=== PATIENT | female | born 1965 | race Caucasian/White ===

== ENCOUNTER → 2021-10-14 14:36 | Outpatient (BNVA) | payer MEDICARE, MEDICAID, SELFPAY | PROVIDERS: PCP Internal Medicine; Visit Provider Internal Medicine | DX: J84.112 Idiopathic pulmonary fibrosis (principal); J96.91 Respiratory failure, unspecified with hypoxia; G47.33 Obstructive sleep apnea (adult) (pediatric); E66.9 Obesity, unspecified; Z99.89 Dependence on other enabling machines and devices | CPT/HCPCS: 99202 ==

== ENCOUNTER 2021-10-19 13:22 | Outpatient (REF) | payer MEDICARE, MEDICAID, SELFPAY ==
--- NOTE | ~2021-10-19 | CT_ITS ---
EXAMINATION: CT CHEST WITHOUT CONTRAST CLINICAL INFORMATION: The hepatic pulmonary fibrosis COMPARISON: Chest CTA September 2017 TECHNIQUE: Multidetector volumetric CT imaging of the chest was done. Axial MIP volume rendering provided. Sagittal and coronal reformatted images were obtained. This CT examination was performed using dose optimization techniques as appropriate, variously including the following: *Automated exposure control *Adjustment of mA and/or kV according to patient size (this includes techniques or standardized protocols for targeted exams where dose is matched to indication/reason for exam; i.e. extremities or head) *Use of iterative reconstruction technique DLP: 180 mGy-cm FINDINGS: LUNGS: The lung volumes are low. There is evidence of interstitial lung disease with increased peripheral reticular markings, increased parenchymal attenuation and honeycombing. This is seen diffusely throughout the lungs. This is slightly increased from 2018 exam. There is a 5 mm right upper lobe nodule axial image 148 series 5. This is new from previous exam. No other nodule is seen. MEDIASTINUM: There are prominent mediastinal lymph nodes that are stable. Evaluation for hilar adenopathy is limited without contrast however there is probable bilateral hilar lymphadenopathy that is not appreciably changed as well. The mediastinum is otherwise unremarkable. PLEURA: There is no pleural effusion. No pleural mass or thickening. AXILLA: No lymphadenopathy. UPPER ABDOMEN: Unremarkable. OSSEOUS STRUCTURES: There are degenerative changes of the spine. CT/CT chest wo con IMPRESSION: Peripheral interstitial lung disease slightly increased from 2018 exam. Question new 5 mm right upper lobe nodule. Chest CT follow-up in 6-12 months recommended. Mediastinal and probable bilateral hilar lymphadenopathy is not appreciably changed. Fleischner guidelines were followed.
== END 2021-10-19 13:23 | disposition home or self-care (01) ==
LOC: HO.CT 13:22
PROVIDERS: Visit Provider Internal Medicine
DX: J96.91 Respiratory failure, unspecified with hypoxia (principal); J84.112 Idiopathic pulmonary fibrosis
CPT/HCPCS: 71250

== ENCOUNTER → 2021-11-09 15:31 | Outpatient (BNVA) | payer MEDICARE, MEDICAID, SELFPAY | PROVIDERS: PCP Internal Medicine; Visit Provider Internal Medicine | DX: J84.112 Idiopathic pulmonary fibrosis (principal); G47.33 Obstructive sleep apnea (adult) (pediatric); J96.91 Respiratory failure, unspecified with hypoxia; E66.9 Obesity, unspecified; Z99.89 Dependence on other enabling machines and devices | CPT/HCPCS: 99212 ==

== ENCOUNTER → 2022-01-07 15:35 | Outpatient (BNVA) | payer MEDICARE, MEDICAID, SELFPAY | PROVIDERS: PCP Internal Medicine; Visit Provider Internal Medicine | DX: J84.112 Idiopathic pulmonary fibrosis (principal); J96.91 Respiratory failure, unspecified with hypoxia; G47.33 Obstructive sleep apnea (adult) (pediatric); E66.9 Obesity, unspecified; F41.9 Anxiety disorder, unspecified; Z99.89 Dependence on other enabling machines and devices; Z68.38 Body mass index [BMI] 38.0-38.9, adult | CPT/HCPCS: 99212 ==

== ENCOUNTER 2023-12-17 20:05 | Emergency (ER) | payer OTHER, SELFPAY ==
--- NOTE | ~2023-12-17 | XR_ITS ---
EXAMINATION: XR KNEE, LEFT CLINICAL INFORMATION: Pain COMPARISON: Left knee radiograph 07/03/2017 TECHNIQUE: AP, lateral, and both oblique views of the left knee. FINDINGS: No acute fracture. Moderate medial compartment arthrosis with joint space narrowing, subchondral sclerosis and marginal osteophytes, progressed from 2017. Mild lateral and patellofemoral compartment arthrosis with osteophytosis. Alignment is anatomic. No significant effusion or soft tissue swelling. XR/XR knee LT 4V IMPRESSION: 1. No acute fracture or dislocation. 2. Moderate medial compartment arthrosis, progressed from 2017.
--- NOTE | 2023-12-17 20:09 | ED_ITS ---
HPI - General Adult General Chief complaint: Extremity Problem Stated complaint: LT knee pain Time Seen by Provider: 12/17/23 21:37 Source: patient Mode of arrival: ambulatory Limitations: no limitations History of Present Illness HPI narrative: Patient's history of pulmonary fibrosis on prednisone status post right knee replacement comes here for pain in the left knee with swelling and redness of the skin last few hours does not remember any trauma no fever no chills no open wound in the left no history of IVDA patient ambulatory as such able to move her knee Related Data Home Medications ?Medication ?Instructions ?Recorded ?Confirmed albuterol sulfate 90 mcg/actuation 2 puff inhalation Q6H PRN 10/14/21 11/09/21 aerosol inhaler baclofen 10 mg tablet 10 mg PO TID 10/14/21 11/09/21 fluticasone fur. 200 mcg-umeclid 1 inh inhalation DAILY 10/14/21 11/09/21 62.5 mcg-vilant 25 mcg inhalat.powder (Trelegy Ellipta) fluticasone propionate 50 1 spray intranasal DAILY 10/14/21 11/09/21 mcg/actuation nasal spray,suspension (Flonase Allergy Relief) ibuprofen 800 mg tablet 800 mg PO TID 10/14/21 11/09/21 ipratropium 0.5 mg-albuterol 3 mg 3 ml inhalation QID PRN 10/14/21 11/09/21 (2.5 mg base)/3 mL nebulization soln sertraline 50 mg tablet 50 mg PO DAILY 10/14/21 11/09/21 trazodone 50 mg tablet 50 mg PO BEDTIME PRN 10/14/21 11/09/21 omeprazole 20 mg capsule,delayed 20 mg PO DAILY 11/09/21 11/09/21 release prednisone 5 mg tablet 5 mg PO DAILY 11/09/21 11/09/21 Previous Rx's ?Medication ?Instructions ?Recorded lorazepam 0.5 mg tablet 0.5 mg PO TID PRN anxiety 15 days 01/07/22 #30 tabs lorazepam 0.5 mg tablet 0.5 mg PO TID PRN anxiety 30 days 01/11/22 #30 tabs lorazepam 0.5 mg tablet 0.5 mg PO TID PRN anxiety 30 days 01/11/22 #30 tabs lorazepam 0.5 mg tablet 0.5 mg PO TID PRN anxiety 10 days 02/18/22 #30 tabs cephalexin 500 mg capsule 500 mg PO QID 10 days #40 caps 12/17/23 doxycycline hyclate 100 mg tablet 100 mg PO BID #20 tabs 12/17/23 Allergies Allergy/AdvReac Type Severity Reaction Status Date / Time Penicillins [PENICILLINS] Allergy Unknown RASH Verified 12/17/23 20:11 Review of Systems 2 Review of Systems: Yes all other systems are reviewed and are negative [facility] Past Medical History Medical History Acute anxiety Respiratory failure with hypoxia Idiopathic pulmonary fibrosis APRIL on CPAP Obesity (BMI 30-39.9) Social History Social History Patient Tobacco Use Status: Never used Tobacco Advance Directives: Yes Advance Directives Information Provided: No Advance Directives on File: No Physical Exam ED Vital Signs: Vital Signs - 24 hr 12/17/23 20:10 12/17/23 22:34 Temperature 98.6 F 98.6 F Pulse Rate 100 100 Respiratory Rate 16 16 Blood Pressure 124/80 124/80 Pulse Oximetry 94 94 Oxygen Delivery Method Room Air Room Air BMI result Body Mass Index 22.9 Appearance: Alert. Oriented X3. No acute distress. Eyes: PERRLA, No Nystagmus ENT: Pharynx normal. Oral Mucosa moist Neck: Normal inspection. Neck supple. CVS: Normal heart rate and rhythm. Pulses normal. Respiratory: No respiratory distress. Equal air entry bilateral, Abdomen: Soft and nontender. Bowel sounds are present, no mass palpable, Skin: Skin warm and dry. Normal skin color. Normal skin turgor. Extremities: No lower extremity edema. No calf tenderness left knee diffuse swelling with joint effusion surrounding cellulitis changes good active and passive movements Maury sign anterior drawer sign negative Neuro: Oriented X 3. Course Course Course Narrative: RME performed by Sissy Eugene PA-C. Patient is a 58 year old assigned female at presenting to the emergency department with a warm and red left knee. Patient states that her PCP sent her here for DVT rule out. Detailed physical exam and review of systems are deferred to the test automation architect. Labs and imaging ordered. Patient placed back in the waiting room pending room availability and results. Medications Administered Discontinued Medications Generic Name Dose Route Start Last Admin Trade Name Oliver PRN Reason Stop Dose Admin Lidocaine HCl 5 ml 12/17/23 21:45 12/17/23 22:09 Lidocaine Hcl 2 % Mpf 5 Ml Vial INFILTRATI 12/17/23 21:46 5 ml ONCE ONE Administration Procedures Joint Aspiration/Injection Joint Asp./Inject. 1: Time Out Performed: Yes Side of body: left Joint Aspirated: knee Ultrasound Guidance: No Skin Prep: Povidone-Iodine1% Local Anesthetic: lidocaine 2% Amount of anesthesia used (mL): 6 Needle Size Used: 20G Total fluid obtained (mL): 0 Patient Tolerated Procedure: well and no complications Complications: none Medical Decision Making Medical Decision Making [facility] Narrative: Patient with left knee arthritic changes good range of movement clinically not septic arthritis does have cellulitis of the skin etiology not very clear knee aspiration tried x2 dry tap. Po wrap was applied patient will prescribe doxycycline and cephalexin patient is on prednisone elevated white counts likely from use of prednisone Differential Diagnosis Differential Diagnoses: The differential diagnosis associated with the presentation includes Cellulitis/arthritis/septic arthritis Lab Data [facility] Lab Attestation statement: I reviewed the patient's lab results. 12/17/23 20:18 12/17/23 20:18 Labs: Lab Results 12/17/23 Range/Units 20:18 WBC 13.0 H (4.8-10.8) X10*3/uL RBC 4.10 L (4.20-5.50) X10*6/uL Hgb 11.7 L (12.0-16.0) g/dl Hct 35.9 L (37.0-47.0) % MCV 87.6 (80.0-98.0) fL MCH 28.5 (27.0-33.0) pg MCHC 32.6 (31.0-35.0) g/dl RDW 14.6 (11.0-16.0) % Plt Count 302 (160-400) X10*3/uL MPV 9.1 L (9.4-12.3) fL Immature Gran % (Auto) Cancelled Neut % (Auto) Cancelled Lymph % (Auto) Cancelled [place] % (Auto) Cancelled Eos % (Auto) Cancelled Baso % (Auto) Cancelled Lymph # (Auto) Cancelled [place] # (Auto) Cancelled Eos # (Auto) Cancelled Baso # (Auto) Cancelled Abs Immat Gran (auto) Cancelled Absolute Neuts (auto) Cancelled Absolute Nucleated RBC 0.000 (0.0-0.012) X10*3/uL Nucleated RBC % (auto) 0.0 (0.0-0.2) /100WBC Neutrophils % (Manual) 44 L (45-73) % Lymphocytes % (Manual) 48 H (20-40) % Monocytes % (Manual) 7 (2-11) % Eosinophils % (Manual) 1 (0-4) % Abs Neuts (Manual) 5.7 (2.0-8.3) X10*3/uL Lymphocytes # (Manual) 6.2 H (1.2-4.9) X10*3/uL Monocytes # (Manual) 0.9 (0.1-1.2) X10*3/uL Eosinophils # (Manual) 0.1 (0.0-0.4) X10*3/uL Platelet Estimate NORMAL (NORMAL) Plt Morphology Comment NORMAL RBC Morphology NORMAL ESR 26 H (0-20) MM/HR D-Dimer High Sensitivty < 150 NG/ML Sodium 139 (135-145) mmol/L Potassium 3.2 L (3.3-5.1) mmol/L Chloride 104 (96-108) mmol/L Carbon Dioxide 28 (22-29) mmol/L Anion Gap 10 L (12-20) BUN 13 (9-16) mg/dL Creatinine 0.69 (0.5-1.4) mg/dL Estim Creat Clear Calc 72.0 Estimated GFR > 60 Random Glucose 128 H (60-115) mg/dL Calcium 8.8 (8.4-10.2) mg/dL Magnesium 1.8 (1.6-2.6) mg/dL Total Bilirubin 0.3 (0.0-1.0) mg/dL AST 17 (5-31) U/L ALT 14 (0-31) U/L Alkaline Phosphatase 89 (39-117) U/L C-Reactive Protein 1.78 H (< or = 0.50) mg/dL Total Protein 7.8 (6.5-8.0) g/dL Albumin 3.7 (3.5-5.0) g/dL Independent Interpretation I performed an independent interpretation of an: Plain X-Ray Radiology Impression Discussion of test interpretation with radiology: I have reviewed the radiologist's reading. Radiologist Impression: [address] [address] XRay Report Signed Patient: Debbie Veronica MR#: [id number] : 1965 Acct:[id number] Age/Sex: 58 / F ADM Date: 12/17/23 Loc: HO.ED Attending Dr: Ordering Physician: Sissy Eugene Date of Service: 12/17/23 Procedure(s): XR knee LT 4V Accession Number(s): [id number] cc: Sissy Eugene; Physician,Unknown ~ EXAMINATION: XR KNEE, LEFT CLINICAL INFORMATION: Pain COMPARISON: Left knee radiograph 07/03/2017 TECHNIQUE: AP, lateral, and both oblique views of the left knee. FINDINGS: No acute fracture. Moderate medial compartment arthrosis with joint space narrowing, subchondral sclerosis and marginal osteophytes, progressed from 2017. Mild lateral and patellofemoral compartment arthrosis with osteophytosis. Alignment is anatomic. No significant effusion or soft tissue swelling. XR/XR knee LT 4V IMPRESSION: 1. No acute fracture or dislocation. 2. Moderate medial compartment arthrosis, progressed from 2017. Discharge Plan Discharge Clinical Impression: Cellulitis of knee, left, Arthralgia of knee, left Patient Disposition: Home, Self-Care Instructions: Cellulitis (ED), Knee Pain (ED) Additional Instructions: You have arthritis of the left knee and cellulitis No significant fluid noticed in the left knee Take antibiotic as prescribed Continue pain medications Report to the ER if worsening of the pain/high fever Prescriptions: New cephalexin 500 mg capsule 500 mg PO QID 10 Days Qty: 40 0RF doxycycline hyclate 100 mg tablet 100 mg PO BID Qty: 20 0RF No Action lorazepam 0.5 mg tablet 0.5 mg PO TID PRN (Reason: anxiety) 30 Days Qty: 30 2RF lorazepam 0.5 mg tablet 0.5 mg PO TID PRN (Reason: anxiety) 30 Days Qty: 30 0RF lorazepam 0.5 mg tablet 0.5 mg PO TID PRN (Reason: anxiety) 10 Days Qty: 30 0RF omeprazole 20 mg capsule,delayed release(DR/EC) 20 mg PO DAILY prednisone 5 mg tablet 5 mg PO DAILY Trelegy Ellipta 200-62.5-25 mcg blister with device 1 inh inhalation DAILY baclofen 10 mg tablet 10 mg PO TID trazodone 50 mg tablet 50 mg PO BEDTIME PRN ibuprofen 800 mg tablet 800 mg PO TID sertraline 50 mg tablet 50 mg PO DAILY albuterol sulfate 90 mcg/actuation HFA aerosol inhaler 2 puff inhalation Q6H PRN ipratropium-albuterol 0.5 mg-3 mg(2.5 mg base)/3 mL solution for nebulization 3 ml inhalation QID PRN fluticasone propionate [Flonase Allergy Relief] 50 mcg/actuation spray,suspension 1 spray intranasal DAILY Rx Instructions: administer into each nostril lorazepam 0.5 mg tablet 0.5 mg PO TID PRN (Reason: anxiety) 15 Days Qty: 30 2RF Interventions: ED Discharge Assessment Last Done: 12/17/23 22:34 Discharge Date/Time: 12/17/23 22:36 Print Language: Upper Sorbian
[2023-12-17 20:10] VITALS: BP 124/80; PULSE 100; RESP 16; TEMP 37; O2SAT 94; BMI 22.9
[2023-12-17 20:24] LABS: Hematocrit 35.9 % (37.0-47.0); Hemoglobin 11.7 g/dl (12.0-16.0); Mean Corpuscular HGB Conc 32.6 g/dl (31.0-35.0); Mean Corpuscular Hemoglobin 28.5 pg (27.0-33.0); Mean Corpuscular Volume 87.6 fL (80.0-98.0); Mean Platelet Volume 9.1 fL (9.4-12.3); Platelet Count 302 X10*3/uL (160-400); Red Cell Distribution Width 14.6 % (11.0-16.0)
[2023-12-17 20:32] LABS: D Dimer High Sensitivity < 150 NG/ML
[2023-12-17 20:43] LABS: Alanine Aminotransferase 14 U/L (0-31); Albumin Level 3.7 g/dL (3.5-5.0); Alkaline Phosphatase 89 U/L (39-117); Anion Gap 10 (12-20); Aspartate Amino Transferase 17 U/L (5-31); Bilirubin Total 0.3 mg/dL (0.0-1.0); Blood Urea Nitrogen 13 mg/dL (9-16); C Reactive Protein 1.78 mg/dL (< or = 0.50); Calcium 8.8 mg/dL (8.4-10.2); Carbon Dioxide 28 mmol/L (22-29); Chloride 104 mmol/L (96-108); Estimated Glomerular Filt Rate > 60; Glucose Random 128 mg/dL (60-115); Magnesium 1.8 mg/dL (1.6-2.6); Potassium 3.2 mmol/L (3.3-5.1); Sodium 139 mmol/L (135-145); Total Protein 7.8 g/dL (6.5-8.0)
[2023-12-17 20:44] LABS: Eosinophils Absolute Manual 0.1 X10*3/uL (0.0-0.4); Eosinophils Percent Manual 1 % (0-4); Lymphocytes Absolute Manual 6.2 X10*3/uL (1.2-4.9); Lymphocytes Percent Manual 48 % (20-40); Monocytes Absolute Manual 0.9 X10*3/uL (0.1-1.2); Monocytes Percent Manual 7 % (2-11); Neutrophils Percent Manual 44 % (45-73); Platelet Estimate NORMAL (NORMAL); Platelet Morphology Comment NORMAL; RBC Morphology NORMAL
[2023-12-17 20:45] LABS: Neutrophils Absolute Manual 5.7 X10*3/uL (2.0-8.3)
[2023-12-17 21:03] LABS: Erythrocyte Sedimentation Rate 26 MM/HR (0-20)
[2023-12-17] MEDS: Lidocaine HCl 2 % MPF 5 ML VIAL INFILTRATI (22:09)
[2023-12-17 22:34] VITALS: BP 124/80; PULSE 100; RESP 16; TEMP 37; O2SAT 94
== END 2023-12-17 22:36 | disposition home or self-care (01) ==
PROVIDERS: Physician Assistant Medical; Emergency Provider Internal Medicine
DX: L03.116 Cellulitis of left lower limb (principal); M25.562 Pain in left knee; M25.462 Effusion, left knee
CPT/HCPCS: 20610; 36415; 73564; 80053; 83735; 85007; 85027; 85379; 85652; 86140; 99282; 99284

== ENCOUNTER 2024-09-13 15:15 | Outpatient (AMB) | payer OTHER, SELFPAY ==
--- NOTE | 2024-09-13 15:14 | MHC.OFFWIV ---
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 Patient Tobacco Use Status: Never used Tobacco Allergies Penicillins [PENICILLINS] Allergy (Unknown, Verified 09/13/24 15:22) RASH HPI HPI Comments History of Present Illness Details History of Present Illness - The patient is a 59-year-old female presenting with a painful, bony growth on the right foot. - she is currently on hospice for pulmonary fibrosis. - The patient noticed the growth two days ago when putting on a slipper, resulting in significant discomfort. - The growth is hard, consistent with a bony structure, and causes pain, limiting her ability to wear footwear comfortably. - There have been no prior treatments or diagnostic evaluations for this condition. - The patient has not identified any specific aggravating or alleviating factors for the growth. Physical Exam General: Cooperative, healthy appearing, comfortable, no acute distress and well developed Orientation: Patient oriented x3 Limitations: No limitations Head: Normal to inspection Ears: Hearing grossly normal bilaterally Nose: Normal external nose present Face and sinus: normal facial exam Eyes: Appearance normal, both eyes and all related structures Neck: Normal visual inspection and Yes full ROM Respiratory: Normal respiratory effort and able to speak in complete sentences. Skin: No rashes or lesions noted Neuro: Patient oriented x3 Extremities: as below. [facility] Medical History Acute anxiety Respiratory failure with hypoxia Idiopathic pulmonary fibrosis APRIL on CPAP Obesity (BMI 30-39.9) Social History Patient Tobacco Use Status: Never used Tobacco Review of Systems Const All systems reviewed & are unremarkable except as noted in HPI and below Physical Exam Vital Signs: Last Vital Signs Pulse 101 H 09/13/24 15:21 BP 122/80 09/13/24 15:21 Pulse Ox 97 09/13/24 15:21 Oxygen Delivery Method Room Air 09/13/24 15:21 Extrem Left lower extremity: foot Details: normal capillary refill, abnormal to inspection Details: a deformity Location: of the 5th digit (base has raised, hard, nonmobile 1cm lump, no signs of infection noted), tenderness Location: of the base of the 5th metatarsal, toes with normal ROM, no edema, vascular exam Details: normal capillary refill, tendon exam Details: active flexion normal and active extension normal (with pain) and motor-sensory exam Details: light-touch normal; no unusual warmth, no abrasions, no lacerations and no ecchymosis Assessment & Plan Assessment & Plan (1) Acute foot pain: Code(s): M79.673 - Pain in unspecified foot Qualifiers: Laterality: right Qualified Code(s): M79.671 - Pain in right foot Plan: The primary objective is to evaluate the hard, bony growth at the base of the 5th metatarsal on the right foot through radiographic imaging to establish its cause. This will allow for appropriate diagnosis and management, focused on reducing discomfort and restoring the patient's ability to wear shoes. Additional supportive measures were declined, such as orthopedic boot or shoe or crutches. Further interventions will be guided by imaging findings and the patient?s response to initial management strategies. Patient was informed and verbally consented to the use of an ambient scribe for clinic note documentation during this visit. Orders: Orders XR foot RT min 3V Today M79.673 - Pain in unspecified foot Coding Level of Care Code New Pt Level 4 (36848) Diagnoses Acute pain of right foot M79.671 Laterality: right
[2024-09-13 15:21] VITALS: BP 122/80; PULSE 101; O2SAT 97
== END 2024-09-13 15:47 | disposition home or self-care (01) ==
PROVIDERS: Visit Provider Physician Assistant
DX: M79.671 Pain in right foot (principal)

== ENCOUNTER 2024-09-13 15:15 | Outpatient (REF) | payer OTHER, SELFPAY ==
--- NOTE | ~2024-09-13 | XR_ITS ---
EXAMINATION: XR FOOT, RIGHT CLINICAL INFORMATION: M79.673 - Pain in unspecified foot -no further clinical information provided COMPARISON: None available. TECHNIQUE: AP, lateral, and oblique views of the right foot. FINDINGS: Normal bone mineralization. No fracture, dislocation, or suspicious bone lesion. Normal alignment. Normal plantar arch. Minimal degenerative arthritis first MTP joint. Joint spaces otherwise normal. No erosions. Normal-appearing soft tissues. XR/XR foot RT min 3V IMPRESSION: No acute findings right foot. Electronically signed by: Tj Jaquez MD 09/13/2024 04:50 PM [facility]
== END 2024-09-13 15:16 | disposition home or self-care (01) ==
LOC: HO.HMGCX 15:15
PROVIDERS: Visit Provider Physician Assistant
DX: M79.671 Pain in right foot (principal)
CPT/HCPCS: 73630; 99202

== ENCOUNTER → 2024-09-13 15:42 | Outpatient (BNV) | payer OTHER, SELFPAY | PROVIDERS: Visit Provider Radiology Diagnostic Radiology | DX: M79.671 Pain in right foot (principal) | CPT/HCPCS: 73630 ==